=== PATIENT | female | born 1965 | race Two or more races ===

== ENCOUNTER 2018-06-06 10:11 | Outpatient (CLI) | payer OTHER | END 2018-06-06 10:40 | disposition home or self-care (01) | LOC: RAD 501 10:11 | DX: M79.641 Pain in right hand (principal) ==

== ENCOUNTER → 2019-04-05 | Outpatient (CLI) | payer OTHER | END | disposition home or self-care (01) | LOC: RAD 15:57 | DX: M25.541 Pain in joints of right hand (principal) ==

== ENCOUNTER 2022-12-08 10:00 | Outpatient (CLI) | payer OTHER | END 2022-12-08 10:18 | disposition home or self-care (01) | LOC: MAMO-SONO 10:00 | PROVIDERS: ATTEND Obstetrics & Gynecology Maternal & Fetal Medicine | DX: Z12.31 Encounter for screening mammogram for malignant neoplasm of breast (principal) ==

== ENCOUNTER 2022-12-23 14:53 | Outpatient (CLI) | payer OTHER | END 2022-12-23 23:00 | disposition home or self-care (01) | LOC: LAB 14:53 | DX: R10.32 Left lower quadrant pain (principal) ==

== ENCOUNTER → 2022-12-27 | Outpatient (CLI) | payer OTHER | END | disposition home or self-care (01) | LOC: TOM 08:04 | DX: R10.32 Left lower quadrant pain (principal); K57.92 Diverticulitis of intestine, part unspecified, without perforation or abscess without bleeding ==

== ENCOUNTER 2024-05-08 09:43 | Outpatient (CLI) | payer OTHER | END 2024-05-08 09:54 | disposition home or self-care (01) | LOC: RAD 09:43 | DX: M79.672 Pain in left foot (principal) ==

== ENCOUNTER → 2024-12-14 10:15 | Outpatient (CLI) | payer OTHER | END | disposition home or self-care (01) | LOC: NUCLEAR 10:15 | DX: M81.0 Age-related osteoporosis without current pathological fracture (principal) ==

== ENCOUNTER 2025-05-29 07:31 | Outpatient (CLI) | payer OTHER | END 2025-05-29 07:38 | disposition home or self-care (01) | LOC: SONOGRAMA 07:31 | PROVIDERS: ATTEND Preventive Medicine Preventive Medicine/Occupational Environmental Medicine | DX: R10.0 Acute abdomen (principal); R10.9 Unspecified abdominal pain ==